=== PATIENT | female | born 1955 | race Caucasian/White ===

== ENCOUNTER 2019-12-24 14:54 | Emergency (ER) | payer OTHER ==
[2019-12-24 15:33] LABS: #Monocytes 0.8 thou/uL (0.11-0.59); #Neutrophils 10.4 thou/uL (1.40-6.50); %Basophils 0.4 % (0.0-1.0); %Eosinophils 0.2 % (0.0-10.0); %Lymphocytes 8.3 % (21.0-51.0); %Monocytes 6.1 % (0.0-10.0); %Neutrophils 85.1 % (42.0-75.0); Hemoglobin 14.1 g/dL (12.0-16.0); Mean Corpuscular HGB CONC 34.6 g/dL (32.0-36.0); Mean Corpuscular Hemoglobin 34.7 pg (27.0-31.0); Mean Platelet Volume 6.6 fL (7.4-10.4); Platelet Count 313 thou/uL (130-400); RBC Distribution Width 14.2 % (11.5-14.5); Red Blood Cell (RBC) Count 4.07 mill/uL (4.20-5.40); White Blood Cell (WBC) Count 12.2 thou/uL (4.8-10.8)
[2019-12-24 15:50] LABS: PTT 26.1 sec (22.9-36.1); Prothrombin Time 13.8 sec (12.0-14.7)
[2019-12-24 16:00] LABS: ALT (SGPT) 61 U/L (8-55); AST (SGOT) 88 U/L (5-34); Albumin 4.3 g/dL (3.4-4.8); Alkaline Phosphatase 94 U/L (40-110); Anion Gap 19 mmol/L (10-20); BUN (Urea Nitrogen) 9 mg/dL (9.8-20.1); Bilirubin, Total 1.1 mg/dL (0.2-1.2); Calc. Creatinine Clearance 0 mL/min (70-130); Calcium 9.4 mg/dL (7.8-10.44); Carbon Dioxide 20 mmol/L (23-31); Chloride 101 mmol/L (98-107); Estimated GFR-MDRD 55; Globulin 3.3 g/dL (2.4-3.5); Glucose 114 mg/dL (80-115); Potassium 4.2 mmol/L (3.5-5.1); Protein, Total 7.6 g/dL (6.0-8.3); Sodium 136 mmol/L (136-145)
== END 2019-12-24 17:51 | disposition home or self-care (01) ==
LOC: ERS 14:54
DX: K92.2 Gastrointestinal hemorrhage, unspecified (principal); E03.9 Hypothyroidism, unspecified; E78.5 Hyperlipidemia, unspecified; F32.9 Major depressive disorder, single episode, unspecified; Z87.891 Personal history of nicotine dependence; Z79.899 Other long term (current) drug therapy
CPT/HCPCS: 36415; 80053; 85025; 85610; 85730; 99284

== ENCOUNTER 2022-11-05 02:54 | Inpatient (IN) | payer OTHER ==
[2022-11-05] MEDS ORDERED: Boostrix 0.5 ML (Tdap) VIAL (>/=7 yrs of age) ONE (03:01)
[2022-11-05] MEDS ORDERED: CEFAZOLIN 2 GM VIAL ONE ×2 (03:01→09:37)
[2022-11-05] MEDS ORDERED: fentaNYL 50 mcg/mL 1 mL Vial ONE ×5 (03:26→13:30)
[2022-11-05 04:13] LABS: #Basophils 0.1 thou/uL (0.0-0.2); #Eosinphils 0.1 thou/uL (0.0-0.7); #Monocytes 0.7 thou/uL (0.11-0.59); #Neutrophils 5.8 thou/uL (1.40-6.50); %Basophils 0.6 % (0.0-1.0); %Eosinophils 1.3 % (0.0-10.0); %Lymphocytes 25.5 % (21.0-51.0); %Monocytes 7.5 % (0.0-10.0); %Neutrophils 64.8 % (42.0-75.0); Hematocrit 38.2 % (36.0-47.0); Hemoglobin 12.9 g/dL (12.0-16.0); Mean Corpuscular HGB CONC 33.8 g/dL (32.0-36.0); Mean Corpuscular Hemoglobin 32.5 pg (27.0-31.0); Mean Corpuscular Volume 96.2 fl (78.0-98.0); Mean Platelet Volume 9.2 fL (7.4-10.4); Platelet Count 359 10x3/uL (130-400); RBC Distribution Width 13.3 % (11.5-14.5); Red Blood Cell (RBC) Count 3.97 mill/uL (4.20-5.40); White Blood Cell (WBC) Count 8.9 10x3/uL (4.8-10.8)
[2022-11-05 04:27] LABS: INR-International Normal Ratio 1.1; Prothrombin Time 14.5 sec (12.0-14.7)
[2022-11-05 04:32] LABS: PTT 22.8 sec (22.9-36.1)
[2022-11-05 04:39] LABS: ALT (SGPT) 27 U/L (8-55); AST (SGOT) 22 U/L (5-34); Albumin 3.9 g/dL (3.4-4.8); Alcohol 153.9 mg/dL (Less than 10); Alkaline Phosphatase 87 U/L (40-110); Anion Gap 18 mmol/L (10-20); BUN (Urea Nitrogen) 5 mg/dL (9.8-20.1); Bilirubin, Total 0.2 mg/dL (0.2-1.2); Calc. Creatinine Clearance 0 mL/min (70-130); Calcium 9.3 mg/dL (7.8-10.44); Carbon Dioxide 21 mmol/L (23-31); Chloride 106 mmol/L (98-107); Estimated GFR 84; Globulin 3.1 g/dL (2.4-3.5); Glucose 137 mg/dL (80-115); Potassium 3.9 mmol/L (3.5-5.1); Sodium 141 mmol/L (136-145)
[2022-11-05 04:55] VITALS: BMI 40.6
[2022-11-05] MEDS ORDERED: Morphine 2 MG/ML VIAL SLOW IVP PRN (04:58)
[2022-11-05] MEDS: Sodium Chloride 0.9% 1,000 ML IV SCH ×3 (05:11→22:04)
[2022-11-05] MEDS: traMADol HCl 50 MG TAB PO SCH ×4 (05:11→23:45)
[2022-11-05] MEDS: Acetaminophen 500 MG TAB PO SCH ×4 (05:11→23:44)
[2022-11-05] MEDS ORDERED: CEFAZOLIN 2 GM in Sodium Chloride 0.9% 100 ML IVPB SCH (07:15)
[2022-11-05] MEDS ORDERED: Ondansetron PF 4 MG/2 ML Vial IVP PRN (07:53)
[2022-11-05] MEDS ORDERED: TETANUS, DIPHTHERIA TOX,ADULT (TDVAX) 0.5 ML VIAL IM ONE (07:53)
[2022-11-05] MEDS ORDERED: Ipratropium/Albuterol 3 ML NEB NEB PRN (07:53)
[2022-11-05] MEDS: Gabapentin 300 MG CAP PO SCH ×3 (09:35→20:00)
[2022-11-05] MEDS: Polyethylene Glycol 3350 17 GM Packet PO SCH (09:35)
[2022-11-05] MEDS: Senokot S 8.6-50 MG TAB PO SCH ×2 (09:35→20:00)
[2022-11-05] MEDS: Famotidine/PF 20 mg/2ml Vial SLOW IVP SCH ×2 (09:35→20:01)
[2022-11-05] MEDS ORDERED: Sodium Chloride 0.9% 100 ML ONE (09:37)
[2022-11-05] MEDS ORDERED: PROPOFOL 20 ML ONE (11:33)
[2022-11-05] MEDS ORDERED: GLYCOPYRROLATE/PF 0.2 MG/ML VIAL ONE (11:34)
[2022-11-05] MEDS ORDERED: Dexmedetomidine 200 MCG/2 ML VIAL ONE (11:37)
[2022-11-05] MEDS ORDERED: Glycopyrrolate 0.2 MG/ML 5 ML SYRINGE ONE (11:48)
[2022-11-05] MEDS ORDERED: PROPOFOL 200 MG/20 ML VIAL ONE (11:48)
[2022-11-05] MEDS ORDERED: Ondansetron PF 4 MG/2 ML Vial ONE ×2 (11:48→12:08)
[2022-11-05] MEDS ORDERED: Bupivacaine PF 0.5% 30 ML VIAL ONE (12:29)
[2022-11-05] MEDS ORDERED: Ondansetron HCl/PF 4 MG/2 ML Vial IVP PRN (13:02)
[2022-11-05] MEDS ORDERED: Promethazine HCl 25 MG/ML VIAL IM PRN (13:02)
[2022-11-05] MEDS: traMADol HCl 50 MG TAB PO PRN (15:43)
[2022-11-05] MEDS: Ibuprofen 600 MG TAB PO PRN (15:43)
[2022-11-05] MEDS: CEFAZOLIN 2 GM in Sodium Chloride 0.9% 100 ML IVPB SCH (18:45)
[2022-11-05] MEDS: Cyclobenzaprine 10 MG TAB PO PRN (20:00)
[2022-11-06] MEDS: CEFAZOLIN 2 GM in Sodium Chloride 0.9% 100 ML IVPB SCH (02:32)
[2022-11-06 04:47] LABS: #Basophils 0.1 thou/uL (0.0-0.2); #Eosinphils 0.2 thou/uL (0.0-0.7); #Monocytes 1.7 thou/uL (0.11-0.59); #Neutrophils 9.5 thou/uL (1.40-6.50); %Basophils 0.5 % (0.0-1.0); %Eosinophils 1.4 % (0.0-10.0); %Lymphocytes 13.1 % (21.0-51.0); %Monocytes 12.5 % (0.0-10.0); %Neutrophils 72.1 % (42.0-75.0); Hematocrit 33.1 % (36.0-47.0); Hemoglobin 11.2 g/dL (12.0-16.0); Mean Corpuscular HGB CONC 33.8 g/dL (32.0-36.0); Mean Corpuscular Hemoglobin 33.1 pg (27.0-31.0); Mean Corpuscular Volume 97.9 fl (78.0-98.0); Mean Platelet Volume 8.9 fL (7.4-10.4); Platelet Count 271 10x3/uL (130-400); RBC Distribution Width 13.8 % (11.5-14.5); Red Blood Cell (RBC) Count 3.38 mill/uL (4.20-5.40); White Blood Cell (WBC) Count 13.2 10x3/uL (4.8-10.8)
[2022-11-06 05:04] LABS: INR-International Normal Ratio 1.1; PTT 28.3 sec (22.9-36.1); Prothrombin Time 14.9 sec (12.0-14.7)
[2022-11-06] MEDS: Acetaminophen 500 MG TAB PO SCH ×4 (05:13→23:05)
[2022-11-06] MEDS: traMADol HCl 50 MG TAB PO SCH ×4 (05:13→23:03)
[2022-11-06] MEDS: Levothyroxine 175 MCG TAB PO SCH (05:13)
[2022-11-06 05:20] LABS: Anion Gap 11 mmol/L (10-20); BUN (Urea Nitrogen) 10 mg/dL (9.8-20.1); Calc. Creatinine Clearance 95 mL/min (70-130); Calcium 8.7 mg/dL (7.8-10.44); Carbon Dioxide 25 mmol/L (23-31); Chloride 103 mmol/L (98-107); Estimated GFR 64; Glucose 129 mg/dL (80-115); Potassium 4.3 mmol/L (3.5-5.1); Sodium 135 mmol/L (136-145)
[2022-11-06] MEDS: traMADol HCl 50 MG TAB PO PRN (09:51)
[2022-11-06] MEDS: Famotidine/PF 20 mg/2ml Vial SLOW IVP SCH ×2 (09:51→19:52)
[2022-11-06] MEDS: Ibuprofen 600 MG TAB PO PRN (09:51)
[2022-11-06] MEDS: Senokot S 8.6-50 MG TAB PO SCH ×2 (09:51→19:53)
[2022-11-06] MEDS: Polyethylene Glycol 3350 17 GM Packet PO SCH (09:51)
[2022-11-06] MEDS: Gabapentin 300 MG CAP PO SCH ×3 (09:52→19:52)
[2022-11-07] MEDS: Acetaminophen 500 MG TAB PO SCH ×3 (05:17→17:25)
[2022-11-07] MEDS: Levothyroxine 175 MCG TAB PO SCH (05:17)
[2022-11-07] MEDS: traMADol HCl 50 MG TAB PO SCH ×3 (05:18→17:26)
[2022-11-07 07:02] LABS: #Basophils 0.1 thou/uL (0.0-0.2); #Eosinphils 0.3 thou/uL (0.0-0.7); #Monocytes 1.4 thou/uL (0.11-0.59); #Neutrophils 9.1 thou/uL (1.40-6.50); %Basophils 0.4 % (0.0-1.0); %Lymphocytes 14.2 % (21.0-51.0); %Monocytes 10.8 % (0.0-10.0); Hematocrit 33.2 % (36.0-47.0); Hemoglobin 11.2 g/dL (12.0-16.0); Mean Corpuscular HGB CONC 33.7 g/dL (32.0-36.0); Mean Corpuscular Volume 97.9 fl (78.0-98.0); Mean Platelet Volume 9.1 fL (7.4-10.4); Platelet Count 268 10x3/uL (130-400); RBC Distribution Width 13.3 % (11.5-14.5); Red Blood Cell (RBC) Count 3.39 mill/uL (4.20-5.40); White Blood Cell (WBC) Count 12.7 10x3/uL (4.8-10.8)
[2022-11-07] MEDS: Polyethylene Glycol 3350 17 GM Packet PO SCH ×2 (08:51→08:54)
[2022-11-07] MEDS: Gabapentin 300 MG CAP PO SCH ×3 (08:51→20:39)
[2022-11-07] MEDS: Senokot S 8.6-50 MG TAB PO SCH ×3 (08:52→20:39)
[2022-11-07] MEDS: Famotidine/PF 20 mg/2ml Vial SLOW IVP SCH ×2 (08:52→09:29)
[2022-11-07] MEDS: Famotidine 20 MG TAB PO SCH ×2 (09:21→20:39)
[2022-11-07] MEDS: traMADol HCl 50 MG TAB PO PRN (09:21)
[2022-11-07] MEDS: Cyclobenzaprine 10 MG TAB PO PRN (20:40)
[2022-11-08] MEDS: Acetaminophen 500 MG TAB PO SCH ×4 (02:02→17:07)
[2022-11-08] MEDS: traMADol HCl 50 MG TAB PO SCH ×4 (02:18→17:06)
[2022-11-08] MEDS: Levothyroxine 175 MCG TAB PO SCH (06:56)
[2022-11-08] MEDS: Famotidine 20 MG TAB PO SCH ×2 (08:12→21:31)
[2022-11-08] MEDS: Gabapentin 300 MG CAP PO SCH ×3 (08:12→21:31)
[2022-11-08] MEDS: Senokot S 8.6-50 MG TAB PO SCH ×2 (08:14→21:32)
[2022-11-08] MEDS: Polyethylene Glycol 3350 17 GM Packet PO SCH (08:14)
[2022-11-08] MEDS: Cyclobenzaprine 10 MG TAB PO PRN (21:32)
[2022-11-09] MEDS: Acetaminophen 500 MG TAB PO SCH ×4 (02:17→17:41)
[2022-11-09] MEDS: traMADol HCl 50 MG TAB PO SCH ×4 (03:41→17:42)
[2022-11-09] MEDS: Levothyroxine 175 MCG TAB PO SCH (05:34)
[2022-11-09 05:59] LABS: #Basophils 0.1 thou/uL (0.0-0.2); #Eosinphils 0.3 thou/uL (0.0-0.7); #Neutrophils 7.1 thou/uL (1.40-6.50); %Basophils 0.6 % (0.0-1.0); %Eosinophils 2.9 % (0.0-10.0); %Lymphocytes 21.5 % (21.0-51.0); %Monocytes 8.8 % (0.0-10.0); %Neutrophils 65.6 % (42.0-75.0); Hemoglobin 11.7 g/dL (12.0-16.0); Mean Corpuscular HGB CONC 33.4 g/dL (32.0-36.0); Mean Corpuscular Hemoglobin 32.1 pg (27.0-31.0); Mean Corpuscular Volume 95.9 fl (78.0-98.0); Mean Platelet Volume 9.2 fL (7.4-10.4); Platelet Count 369 10x3/uL (130-400); RBC Distribution Width 13.4 % (11.5-14.5); Red Blood Cell (RBC) Count 3.65 mill/uL (4.20-5.40); White Blood Cell (WBC) Count 10.9 10x3/uL (4.8-10.8)
[2022-11-09] MEDS: Senokot S 8.6-50 MG TAB PO SCH ×2 (08:21→21:42)
[2022-11-09] MEDS: Famotidine 20 MG TAB PO SCH ×2 (08:21→21:41)
[2022-11-09] MEDS: Polyethylene Glycol 3350 17 GM Packet PO SCH (08:21)
[2022-11-09] MEDS: Gabapentin 300 MG CAP PO SCH ×3 (08:22→21:40)
[2022-11-09] MEDS: Cyclobenzaprine 10 MG TAB PO PRN ×2 (08:23→21:41)
[2022-11-10] MEDS: Acetaminophen 500 MG TAB PO SCH ×4 (04:05→17:08)
[2022-11-10] MEDS: traMADol HCl 50 MG TAB PO SCH ×4 (04:06→17:09)
[2022-11-10] MEDS: Levothyroxine 175 MCG TAB PO SCH (05:58)
[2022-11-10] MEDS: Senokot S 8.6-50 MG TAB PO SCH ×2 (08:23→19:29)
[2022-11-10] MEDS: Gabapentin 300 MG CAP PO SCH ×3 (08:23→19:29)
[2022-11-10] MEDS: Famotidine 20 MG TAB PO SCH ×2 (08:23→19:30)
[2022-11-10] MEDS: Polyethylene Glycol 3350 17 GM Packet PO SCH (08:26)
[2022-11-10] MEDS: Cyclobenzaprine 10 MG TAB PO PRN (20:18)
[2022-11-11] MEDS: Acetaminophen 500 MG TAB PO SCH ×5 (01:01→22:52)
[2022-11-11] MEDS: traMADol HCl 50 MG TAB PO SCH ×5 (01:01→22:51)
[2022-11-11] MEDS: Levothyroxine 175 MCG TAB PO SCH (05:22)
[2022-11-11] MEDS: Polyethylene Glycol 3350 17 GM Packet PO SCH (09:03)
[2022-11-11] MEDS: Senokot S 8.6-50 MG TAB PO SCH ×2 (09:03→19:47)
[2022-11-11] MEDS: Famotidine 20 MG TAB PO SCH ×2 (09:04→19:47)
[2022-11-11] MEDS: Gabapentin 300 MG CAP PO SCH ×3 (09:04→19:47)
[2022-11-11] MEDS: Cyclobenzaprine 10 MG TAB PO PRN (15:01)
[2022-11-12] MEDS: Levothyroxine 175 MCG TAB PO SCH (05:25)
[2022-11-12] MEDS: traMADol HCl 50 MG TAB PO SCH (05:26)
[2022-11-12] MEDS: Acetaminophen 500 MG TAB PO SCH (05:26)
[2022-11-12] MEDS: Gabapentin 300 MG CAP PO SCH (09:50)
[2022-11-12] MEDS: Famotidine 20 MG TAB PO SCH (09:52)
[2022-11-12] MEDS: Polyethylene Glycol 3350 17 GM Packet PO SCH (10:34)
[2022-11-12] MEDS: Senokot S 8.6-50 MG TAB PO SCH (10:34)
[2022-11-12 13:50] VITALS: BP 125/80; TEMP 98.4
[2022-11-12] MEDS ORDERED: Ciprofloxacin 0.3% Ophth Soln 2.5 ml Bottle R EAR SCH (21:00)
== END 2022-11-12 14:13 | DRG 493 ==
LOC: ERS 02:54 → SURG A 03:28
PROVIDERS: ADMIT Surgery; ATTEND Surgery
PROC: 0QSK04Z Reposition Left Fibula with Internal Fixation Device, Open Approach (ICD-10-PCS; principal; 2022-11-05)
PROC: 0QSH04Z Reposition Left Tibia with Internal Fixation Device, Open Approach (ICD-10-PCS; 2022-11-05)
PROC: 0QSH04Z Reposition Left Tibia with Internal Fixation Device, Open Approach (ICD-10-PCS; 2022-11-05)
DX: S82.852B Displaced trimalleolar fracture of left lower leg, initial encounter for open fracture type I or II (principal); D62 Acute posthemorrhagic anemia; Z68.41 Body mass index [BMI] 40.0-44.9, adult; E03.9 Hypothyroidism, unspecified; E78.5 Hyperlipidemia, unspecified; F32.A Depression, unspecified; W19.XXXA Unspecified fall, initial encounter; E66.9 Obesity, unspecified; F10.129 Alcohol abuse with intoxication, unspecified; D72.829 Elevated white blood cell count, unspecified; Z87.891 Personal history of nicotine dependence; Y92.002 Bathroom of unspecified non-institutional (private) residence as the place of occurrence of the external cause
CPT/HCPCS: 27808; 36415; 71045; 80048; 80053; 80307; 85025; 85610; 85730; 90715; 93005; 93010; C1713; J1650; J2405; J2704; J3010; J3490; J7050; S0020; S0028